=== PATIENT | female | born 1955 | race Caucasian/White ===

== ENCOUNTER → 2019-12-14 17:03 | Outpatient (CLI) | payer OTHER, SELFPAY ==
--- NOTE | ~2019-12-14 | MM_ITS ---
EXAMINATION: MM screening [facility] BI w imtiaz HISTORY: Screening mammogram TECHNIQUE: Craniocaudal and mediolateral oblique 3-D tomosynthesis images were obtained and synthetic 2-D images were generated. CAD analysis was submitted and interpreted. COMPARISON: 06/09/2018, 05/16/2017, 03/03/2016 BREAST PARENCHYMAL COMPOSITION: The breasts are almost entirely fatty. FINDINGS: There is no evidence of suspicious mass, calcification, or architectural distortion to sugg est malignancy in either breast. There has been no suspicious interval change. IMPRESSION: 1. No mammographic evidence of malignancy. 2. Recommend routine screening mammography in one year. BI-RADS Category 1: Negative Reviewed, dictated and finalized at location A.
== END ==
PROVIDERS: Visit Provider Family Medicine
DX: Z12.31 Encounter for screening mammogram for malignant neoplasm of breast (principal)
CPT/HCPCS: 77063; 77067

== ENCOUNTER → 2021-01-16 16:00 | Outpatient (CLI) | payer OTHER, SELFPAY ==
--- NOTE | ~2021-01-16 | MM_ITS ---
EXAMINATION: MM screening [facility] w imtiaz HISTORY: Screening mammogram TECHNIQUE: Craniocaudal and mediolateral oblique 3-D tomosynthesis images were obtained and synthetic 2-D images were generated. CAD analysis was submitted and interpreted. COMPARISON: 12/14/2019, 09/2017, 05/16/2017 bilateral digital screening mammogram examinations BREAST PARENCHYMAL COMPOSITION: The breasts are almost entirely fatty. FINDINGS: There is no evidence of suspicious mass, calcification, or architectural distortion to sugg est malignancy in either breast. There has been no suspicious interval change. IMPRESSION: 1. No mammographic evidence of malignancy. 2. Recommend routine screening mammography in one year. BI-RADS Category 1: Negative Reviewed, dictated and finalized at location A.
== END ==
PROVIDERS: Visit Provider Obstetrics & Gynecology
DX: Z12.31 Encounter for screening mammogram for malignant neoplasm of breast (principal)
CPT/HCPCS: 77063; 77067

== ENCOUNTER → 2022-03-25 16:10 | Outpatient (CLI) | payer OTHER, SELFPAY ==
--- NOTE | ~2022-03-25 | MM_ITS ---
EXAMINATION: MM screening [facility] w imtiaz HISTORY: Screening TECHNIQUE: Craniocaudal and mediolateral oblique 3-D tomosynthesis images were obtained and synthetic 2-D images were generated. CAD analysis was submitted and interpreted. COMPARISON: Comparison to multiple prior studies sequentially, with oldest reviewed study dated 06/09. BREAST PARENCHYMAL COMPOSITION: There are scattered areas of fibroglandular density. FINDINGS: There is no evidence of suspicious mass, calcification, or architectural distortion to sugg est malignancy in either breast. There has been no suspicious interval change. IMPRESSION: 1. No mammographic evidence of malignancy. 2. Recommend routine screening mammography in one year. BI-RADS Category 1: Negative Reviewed, dictated and finalized at location A.
== END ==
PROVIDERS: PCP Obstetrics & Gynecology; Visit Provider Physician Assistant
DX: Z12.31 Encounter for screening mammogram for malignant neoplasm of breast (principal)
CPT/HCPCS: 77063; 77067

== ENCOUNTER → 2022-10-29 14:10 | Outpatient (CLI) | payer OTHER, SELFPAY ==
--- NOTE | ~2022-10-29 | CT_ITS ---
EXAMINATION: CT soft tissue neck w con DATE: 10/29/2022 14:37 INDICATION: Localized enlarged lymph node. Cervical lymphadenopathy. TECHNIQUE: Computed tomography (CT) of the neck was performed with 75 mL Omnipaque-350 intravenous co ntrast. Automated exposure control and iterative reconstruction technique were employed. The dose-timbo gth product was 446.99 mGy-cm. COMPARISON: Chest CT 09/30/2014 FINDINGS: There is a 2.6 x 2.1 cm high right internal jugular chain lymph node. There is a 2.9 x 1.8 cm mass involving the right base of tongue and right floor of mouth. There is plaque in the proximal internal carotid arteries with 0% stenosis relative to normal distal artery lumen diameters. There is mucosal thickening in the paranasal sinuses. The mastoid air cells are normal. The orbits are normal . There is mild cervical spondylosis. IMPRESSION: 1. Mass involving right base of tongue and right floor of mouth, consistent with primary squamous scarlett l carcinoma. 2. Enlarged high right internal jugular lymph node, consistent with metastatic disease. Reviewed, dictated and finalized at location A. H NAPPING SUPERVISOR IMPRESSION: 1. Mass involving right base of tongue and right floor of mouth, consistent wit h primary squamous cell carcinoma. 2. Enlarged high right internal jugular lymph node, consistent with metastatic disease.
[2022-10-29 14:28] LABS: Estimated Glomerular Filt Rate > 60
== END ==
PROVIDERS: PCP Physician Assistant; Visit Provider Otolaryngology
DX: R59.0 Localized enlarged lymph nodes (principal)
CPT/HCPCS: 70491; Q9967

== ENCOUNTER 2022-11-22 09:37 | Outpatient (CLI) | payer OTHER, SELFPAY ==
--- NOTE | ~2022-11-22 | US_ITS ---
EXAMINATION: US biopsy lymph node DATE: 11/22/2022 10:57 INDICATION: Cervical lymphadenopathy TECHNIQUE: The procedure including the risks and benefits was discussed with the patient. Risks discu ssed included bleeding and infection. The patient understood the risks and agreed to proceed. The sk in overlying the submandibular right neck was prepped and draped in usual sterile fashion. Anestheti c was administered with 1% lidocaine subcutaneously. An 18 gauge core biopsy needle was advanced und er continuous ultrasound observation to the lesion of interest. 5 core biopsy specimens were obtaine d. The needle was removed and the entry site was cleaned and dressed. Post procedure ultrasound dem onstrated no hemorrhage. FINDINGS: Ultrasound images demonstrate a 4.3 x 2.0 x 2.5 cm mixed solid and cystic mass, potentially a lymph node along the right jugular chain which corresponds in size, location and appearance with t he lesion identified on prior CT. Also noted is a 2.8 x 2.4 x 1.9 cm hypoechoic mass in the right sub mandibular gland. Subsequent images demonstrate biopsy needle advanced into the next solid and cystic mass of concern. IMPRESSION: 1. Successful Ultrasound-guided biopsy of an enlarged 4.3 x 2.0 x 2.5 cm likely metastatic right inte rnal jugular chain lymph node. Reviewed, dictated and finalized at location A. TENDER PULP DRIER IMPRESSION: 1. Successful Ultrasound-guided biopsy of an enlarged 4.3 x 2.0 x 2.5 cm likely metastatic right internal jugular chain lymph node.
== END 2022-11-22 09:38 | disposition home or self-care (01) ==
PROVIDERS: PCP Physician Assistant; Visit Provider Otolaryngology
DX: R59.0 Localized enlarged lymph nodes (principal)
CPT/HCPCS: 38505; 76942; 88305; 88342

== ENCOUNTER → 2023-08-23 14:31 | Outpatient (CLI) | payer MEDICARE, SELFPAY ==
--- NOTE | ~2023-08-23 | MM_ITS ---
EXAMINATION: MM screening [facility] BI w imtiaz HISTORY: Screening mammogram TECHNIQUE: Craniocaudal and mediolateral oblique 3-D tomosynthesis images were obtained and synthetic 2-D images were generated. CAD analysis was submitted and interpreted. COMPARISON: 03/25/2022, 01/16/2021, 12/14/2019 BREAST PARENCHYMAL COMPOSITION: The breasts are almost entirely fatty. FINDINGS: No suspicious mass, calcification, or architectural distortion are identified in either consuelo ast to suggest malignancy. There has been no suspicious interval change. IMPRESSION: 1. No mammographic evidence of malignancy. 2. Recommend routine screening mammography in one year. BI-RADS Category 1: Negative Reviewed, dictated and finalized at location A. PROCUREMENT COORDINATOR
== END ==
PROVIDERS: PCP Physician Assistant; Visit Provider Obstetrics & Gynecology
DX: Z12.31 Encounter for screening mammogram for malignant neoplasm of breast (principal)
CPT/HCPCS: 77063; 77067

== ENCOUNTER 2024-08-28 14:47 | Outpatient (CLI) | payer MEDICARE, SELFPAY ==
--- NOTE | ~2024-08-28 | MM_ITS ---
EXAMINATION: MM screening [facility] w [facility] HISTORY: Screening TECHNIQUE: Craniocaudal and mediolateral oblique 3-D tomosynthesis images were obtained and synthetic 2-D images were generated. CAD analysis was submitted and interpreted. COMPARISON: Comparison to multiple prior studies sequentially, with oldest reviewed study dated 05/16. BREAST PARENCHYMAL COMPOSITION: Not dense: There are scattered areas of fibroglandular density. FINDINGS: There is no evidence of suspicious mass, calcification, or architectural distortion to sugg est malignancy in either breast. There has been no suspicious interval change. IMPRESSION: 1. No mammographic evidence of malignancy. 2. Recommend routine screening mammography in one year. BI-RADS Category 1: Negative Reviewed, dictated and finalized at location B. ORATE ACCOUNT EXECUTIVE
== END 2024-08-28 14:48 | disposition home or self-care (01) ==
LOC: MICIMG 14:49
PROVIDERS: PCP Family Medicine; Visit Provider Obstetrics & Gynecology
DX: Z12.31 Encounter for screening mammogram for malignant neoplasm of breast (principal)
CPT/HCPCS: 77063; 77067

== ENCOUNTER 2024-10-01 01:04 | Day surgery (SDC) | payer MEDICARE, SELFPAY ==
[2024-09-13 10:06] VITALS: BMI 50.0
[2024-10-01 06:17] VITALS: BP 174/80; PULSE 108; RESP 20; TEMP 36.1; O2SAT 98
[2024-10-01] MEDS: LACTATED RINGERS 1,000 ML 150 ML IV CONT (06:29)
[2024-10-01 06:35] LABS: Glucose Point of Care 191 mg/dl (65-105)
--- NOTE | 2024-10-01 07:23 | P.PNAN_ITS ---
Anes - Initial Pre Proc Eval Procedure: Operation Date: 10/01/24 07:30 Proposed Procedures p Screening Colonoscopy - Tommy Au DO Date/Time: 10/01/24 07:23 Surgeon: Tommy Au DO Pre Op Diagnosis: Screening for malignant neoplasm of colon Patient Data Age: 69 Gender: F Height: 1.68 m Weight: 138.5 kg Last Vital Signs Temp 97 F L 10/01/24 06:17 Pulse 108 H 10/01/24 06:17 Resp 20 10/01/24 06:17 BP 174/80 H 10/01/24 06:17 Pulse Ox 98 10/01/24 06:17 O2 Del Method Room Air 10/01/24 06:17 Allergies Allergy/AdvReac Type Severity Reaction Status Date / Time No Known Allergies Allergy Verified 10/01/24 06:15 Home Medications ?Medication ?Instructions ?Recorded ?Confirmed ?Type ljilrsjoqlyv-ujssqjgw-vivbrxq-folic 1 tablet PO DAILY 03/31/20 10/01/24 History acid 400 mcg-vit K1 20 mcg tablet (One-A-Day Women's 50 Plus) omega 3-edh-wfx-fish oil 1,200 mg 1 cap PO DAILY 08/31/21 10/01/24 History (144 mg-216 mg) capsule (Fish Oil) semaglutide 0.25 mg or 0.5 mg (2 0.25 mg (0.187 mL) subcut WEEKLY 09/16/22 09/13/24 Rx mg/1.5 mL) subcutaneous pen #1.5 mL injector ([place]) metformin 1,000 mg tablet See Rx Instructions .Route 06/15/24 10/01/24 Rx .COMPLEX #180 tabs lisinopril 10 mg tablet See Rx Instructions .Route 07/05/24 10/01/24 Rx .COMPLEX #90 tabs atorvastatin 20 mg tablet 20 mg PO DAILY #90 tabs 07/06/24 10/01/24 Rx Laboratory Tests 10/01/24 06:28 POC Capillary Glucose 191 H mg/dl (65-105) Patient hx anesthesia problems: none Family hx anesthesia problems: none Results Review: All pre-operative results and documents have been reviewed as part of the pre- operative evaluation. [facility] Past Medical History Medical History Hyperlipidemia Endometrial cancer Obstructive sleep apnea Hypertension Diabetes Surgical History Surgical History History of hysterectomy for cancer Family History Family History Mother Diabetes mellitus Cerebrovascular accident Family history of atrial fibrillation Father Family history of coronary artery disease Family history of malignant neoplasm of urinary bladder Social History Social History Smoking status: Former smoker Second hand tobacco smoke exposure: No Smoking end date: 09/19/04 Alcohol intake: current Alcohol use details: Rarely Substance use: never Substance use type: does not use Lack of Transportation: No Lack of Food: Never True Current Housing: I Have Housing Concerned About Future Housing: No Difficulty Paying Gas/Electric Bills: No Difficulty Paying for Meds: No Currently Unemployed: No Education: High School Diploma/GED Difficulty w/ Childcare or Family Care: No Living arrangements: with family Occupation/Education: occupation Gender identity (if verbalized by the patient): Female Anes - Evalok Final PreProcedure Day of Procedure 10/01/24 07:23 Patient weight: super morbidly obese Heart: regular rate and rhythm Lungs: clear to auscultation Airway: Mallampati scale class III Neurological: alert and oriented Last oral intake: >/= 8 hours ASA classification: IV Emergent: no Anesthetic plan: proceed Anesthesia type and monitoring: general GIVS and standard monitoring Results Review: All pre-operative results and documents have been reviewed as part of the pre- operative evaluation. Informed Consent: The patient's anesthetic plan and its attendant risks and benefits were discussed with the patient/family/POA. Questions were solicited and answers provided to the satisfaction of the patient/family/POA.
--- NOTE | 2024-10-01 07:38 | P.HP_ITS ---
H&P: HPI History of Present Illness Date/Time: 10/01/24 07:38 Chief Complaint: Screening for colorectal cancer Narrative: this is a 69-year-old woman who presents for colonoscopy. Her last colonoscopy was 7 years ago and was normal. She denies any hematochezia or melena. She denies family history of colon cancer. Review of Systems Review of Systems: All systems reviewed & are unremarkable except as noted in HPI and below Constitutional: Constitutional: Denies chills, Denies fever(s), Denies headache(s) and Denies weight loss Eyes: Eyes: Denies change in vision ENT: Denies dizziness, Denies headache(s), Denies neck mass and Denies throat swelling Cardiovascular: Cardiovascular: Denies chest pain, Denies lightheadedness and Denies dyspnea Respiratory: Respiratory: Denies cough, Denies dyspnea and Denies wheezing Gastrointestinal: Gastrointestinal: Denies abdominal pain, Denies change in bowel habits, Denies nausea and Denies vomiting Genitourinary: Genitourinary: Denies hematuria and Denies dysuria Musculoskeletal: Musculoskeletal: Reports as per HPI Integumentary/Breasts: Skin/Breast: Reports as per HPI Neurologic: Denies dizziness and Denies headache(s) Allergic/Immunologic: Allergic/Immunologic: Denies throat swelling and Denies wheezing [facility] Past Medical History Medical History (Updated 10/01/24 @ 07:39 by Tommy Au DO) Hyperlipidemia Endometrial cancer Obstructive sleep apnea Hypertension Diabetes Surgical History Surgical History History of hysterectomy for cancer Family History Family History Mother Diabetes mellitus Cerebrovascular accident Family history of atrial fibrillation Father Family history of coronary artery disease Family history of malignant neoplasm of urinary bladder Social History Social History Smoking status: Former smoker Second hand tobacco smoke exposure: No Smoking end date: 09/19/04 Alcohol intake: current Alcohol use details: Rarely Substance use: never Substance use type: does not use Lack of Transportation: No Lack of Food: Never True Current Housing: I Have Housing Concerned About Future Housing: No Difficulty Paying Gas/Electric Bills: No Difficulty Paying for Meds: No Currently Unemployed: No Education: High School Diploma/GED Difficulty w/ Childcare or Family Care: No Living arrangements: with family Occupation/Education: occupation Gender identity (if verbalized by the patient): Female Meds Home Medications and Allergies Home Medications ?Medication ?Instructions ?Recorded ?Confirmed ?Type fhltrrrtwylm-ljduebmp-tgrdrds-folic 1 tablet PO DAILY 03/31/20 10/01/24 History acid 400 mcg-vit K1 20 mcg tablet (One-A-Day Women's 50 Plus) omega 9-wxk-jtg-fish oil 1,200 mg 1 cap PO DAILY 08/31/21 10/01/24 History (144 mg-216 mg) capsule (Fish Oil) semaglutide 0.25 mg or 0.5 mg (2 0.25 mg (0.187 mL) subcut WEEKLY 09/16/22 09/13/24 Rx mg/1.5 mL) subcutaneous pen #1.5 mL injector ([place]) metformin 1,000 mg tablet See Rx Instructions .Route 06/15/24 10/01/24 Rx .COMPLEX #180 tabs lisinopril 10 mg tablet See Rx Instructions .Route 07/05/24 10/01/24 Rx .COMPLEX #90 tabs atorvastatin 20 mg tablet 20 mg PO DAILY #90 tabs 07/06/24 10/01/24 Rx Allergies Allergy/AdvReac Type Severity Reaction Status Date / Time No Known Allergies Allergy Verified 10/01/24 06:15 Vital Signs Vital Signs - 24 hr 10/01/24 06:17 Temperature 97 F L Pulse Rate 108 H Respiratory Rate 20 Blood Pressure 174/80 H Pulse Oximetry 98 Oxygen Delivery Room Air Exam Const: General: no acute distress and alert Orientation/consciousness: patient oriented x3 HENMT: Head: normocephalic and atraumatic Ears: hearing grossly normal bilaterally Face/Nose/Sinus: Normal nares present Mouth: Yes Normal oral and palatal mucosa present Eyes: Periorbital: periorbital findings normal Sclera: sclerae normal EOM: EOMs intact bilaterally Neck: Neck: normal visual inspection, no lymphadenopathy and trachea midline Chest: Chest palpation & inspection: normal inspection of the chest Resp: Effort & Inspection: normal respiratory effort Auscultation: clear to auscultation bilaterally Cardio: Jugular venous distension: no JVD Rate: regular rate Rhythm: regular rhythm Heart sounds: S1 normal heart sound present and S2 normal heart sound present Peripheral pulses: Peripheral pulses 2+ throughout GI: Inspection: normal to inspection GI Palp: Yes Soft to palpation, No Tenderness to palpation present (GI), No Guarding due to palpation present (GI) and No Rebound tenderness present Percussion: Yes normal to percussion Auscultation: normal bowel sounds : General: Yes no CVA tenderness Back/Spine/Pelvis: Back: no CVA tenderness Neuro: General: patient oriented x3, no focal motor deficits and CN's II-XI intact bilaterally Cognition (Neuro): normal cognition Speech: normal speech Motor exam (neuro): 5/5 motor strength present throughout Extrem: General: capillary refill normal and no clubbing, cyanosis or edema Assessment and Plan Assessment and plan (1) Screening for colorectal cancer: Code(s): Z12.11 - Encounter for screening for malignant neoplasm of colon; Z12.12 - Encounter for screening for malignant neoplasm of rectum Status: Acute Assessment and Plan: I have recommended colonoscopy. I have discussed the procedure, risks, benefits, and alternatives. Questions were answered. Patient is agreeable to proceed.
[2024-10-01 08:08] VITALS: BP 151/75; PULSE 83; RESP 20; O2SAT 99
[2024-10-01 08:18] VITALS: BP 137/80; PULSE 84; RESP 20; O2SAT 99
[2024-10-01 08:28] VITALS: BP 153/82; PULSE 72; RESP 15; O2SAT 100
== END 2024-10-01 08:40 | disposition home or self-care (01) ==
PROVIDERS: PCP Family Medicine; Visit Provider Surgery
PROC: 0DJD8ZZ Inspection of Lower Intestinal Tract, Via Natural or Artificial Opening Endoscopic (ICD-10-PCS; CPT 45378; principal; 2024-10-01 07:30)
DX: Z12.11 Encounter for screening for malignant neoplasm of colon (principal); K64.8 Other hemorrhoids; E78.5 Hyperlipidemia, unspecified; G47.33 Obstructive sleep apnea (adult) (pediatric); I10 Essential (primary) hypertension; E11.9 Type 2 diabetes mellitus without complications; E66.01 Morbid (severe) obesity due to excess calories; Z68.42 Body mass index [BMI] 45.0-49.9, adult; Z79.85 Long-term (current) use of injectable non-insulin antidiabetic drugs; Z79.84 Long term (current) use of oral hypoglycemic drugs; Z98.890 Other specified postprocedural states; Z87.891 Personal history of nicotine dependence; Z85.42 Personal history of malignant neoplasm of other parts of uterus; Z80.52 Family history of malignant neoplasm of bladder; Z82.49 Family history of ischemic heart disease and other diseases of the circulatory system
CPT/HCPCS: G0105; 82948; J2003; J2704; J7120

== ENCOUNTER 2025-08-30 13:13 | Outpatient (CLI) | payer MEDICARE, SELFPAY ==
--- NOTE | ~2025-08-30 | MM_ITS ---
EXAMINATION: MM screening [facility] w imtiaz HISTORY: Screening. TECHNIQUE: Craniocaudal and mediolateral oblique 3-D tomosynthesis images were obtained and synthetic 2-D images were generated. CAD analysis was submitted and interpreted. COMPARISON: 2023, 2022, and 2021. BREAST PARENCHYMAL COMPOSITION: Not Dense: There are scattered areas of fibroglandular FINDINGS: No suspicious masses are seen. There are no suspicious calcifications. No unexplained architectural distortion is seen. There are no skin or nipple abnormalities identified. There is no adenopathy seen on the images submitted. IMPRESSION: No mammographic evidence to suggest malignancy is seen. The patient may return to screening mammography as per ACR guidelines. BI-RADS 1 - Negative. Reviewed, dictated and finalized at location C. FRAME TENDER
== END 2025-08-30 13:14 | disposition home or self-care (01) ==
LOC: CHSIMG 13:14
PROVIDERS: PCP Student in an Organized Health Care Education/Training Program; Visit Provider Obstetrics & Gynecology
DX: Z12.31 Encounter for screening mammogram for malignant neoplasm of breast (principal)
CPT/HCPCS: 77063; 77067